=== PATIENT | female | born 1950 | race African-American/Black ===

== ENCOUNTER 2016-12-26 18:27 | Emergency (ER) | payer MEDICARE, OTHER ==
[2016-12-26 16:07] LABS: BASOPHILS 0.3 %; BASOPHILS ABSOLUTE 0.02 10/3/uL (0.0-0.16); EOSINOPHILS 4.5 %; EOSINOPHILS ABSOLUTE 0.35 10/3/uL (0.0-0.53); HEMOGLOBIN 10.8 g/dL (12.0-16.0); IMMATURE GRANULOCYTES 0.3 %; IMMATURE GRANULOCYTES ABSOLUTE 0.02 10/3/uL (0.0-0.11); LYMPHOCYTES 29.1 %; LYMPHOCYTES ABSOLUTE 2.26 10/3/uL (0.67-4.30); MEAN CORPUS HGB CONC 32.9 g/dL (32.0-36.0); MEAN CORPUSCULAR HEMOGLOB 28.9 pg (26.0-34.0); MEAN CORPUSCULAR VOLUME 87.7 fL (80-100); MEAN PLATELET VOLUME 11.6 fL (9.2-13.0); MONOCYTES 7.3 %; MONOCYTES ABSOLUTE 0.57 10/3/uL (0.21-1.20); NEUTROPHILS 58.5 %; NEUTROPHILS ABSOLUTE 4.54 10/3/uL (2.02-8.40); PLATELET COUNT 130 10/3/uL (150-400); RBC DISTRIBUTION WIDTH 14.6 % (12.0-16.0); RED CELL COUNT 3.74 10/6/uL (4.0-5.6); WHITE BLOOD CELLS 7.8 10/3/uL (4.5-10.5)
[2016-12-26 16:13] LABS: HEMATOCRIT 32.8 % (36.0-48.0); MANUAL DIFF NO %
[2016-12-26 16:23] LABS: ALBUMIN 3.2 G/DL (3.5-5.0); CHLORIDE, SERUM 108 MMOL/L (96-112); CO2 (CARBON DIOXIDE) 28 MMOL/L (24-34); GLUCOSE, SERUM 171 MG/DL (60-99); POTASSIUM, SERUM 4.3 MMOL/L (3.5-5.3); SGOT(AST) 12 U/L (5-40); SGPT(ALT) 11 U/L (5-65); SODIUM, SERUM 144 MMOL/L (135-148); TOTAL BILIRUBIN 0.5 MG/DL (0-1.2); TOTAL PROTEIN 7.6 G/DL (6.0-8.5)
[2016-12-26 16:26] LABS: A/G RATIO 0.7 (0.7-1.9); ALKALINE PHOSPHATASE 124 U/L (45-117); BUN (BLOOD UREA NITROGEN) 28 MG/DL (6-23); CALCIUM, SERUM 9.4 MG/DL (8.5-10.4); CREATININE 3.55 MG/DL (0.55-1.02); GFR AFRICAN AMERICAN 15 ML/MIN (>=60); GFR NON AFRICAN AMERICAN 13 ML/MIN (>=60); GLOBULIN 4.4 G/DL (2.5-4.1)
[2016-12-26 16:38] LABS: ASCORBIC ACID (UR NOT ORDER) NEG (NEG); BILIRUBIN, URINE NEGATIVE (NEG); ER URINALYSIS TAT 0 Hrs 14 Mins; KETONE, URINE NEGATIVE (NEG); LEUKOCYTE ESTERASE(NOT OR MOD (NEG); NITRITE (URINE) NEG (NEG); WBC (NOT ORDERED) (RFLEX) 88 (0-5)
[~2016-12-26 18:27] MED LIST: ASAB PO; COREG25 PO; DRISDOL50000 UNT PO; IRON325 MG PO; L80 PO; LANTUS SC; LIPITOR; LIPITOR20 PO; MAGOX4 PO; MICARDIS40 PO; MICARDIS80 PO; NEXIUM; NEXIUM40 PO; NOVOLOG SC; NXL9 PO; O2; SPIRO25 PO; VIT D; VITAMIN B-121000 MC1 SL; VITAMIN D31000 UNIT PO; ZAROX2.5B PO
[2017-03-12] MEDS ORDERED: VENTOLIN HFA INH (22:13)
[2017-03-12] MEDS ORDERED: LIPITOR20 PO (22:14)
[2017-03-12] MEDS ORDERED: ZAROX2.5B PO (22:14)
[2017-03-12] MEDS ORDERED: BUM2 PO (22:14)
[2017-03-12] MEDS ORDERED: COREG25 PO ×2 (22:15→22:16)
[2017-03-12] MEDS ORDERED: ADALAT CC30 MG PO (22:16)
[2017-03-12] MEDS ORDERED: SENSIPAR30 MG PO (22:17)
[2017-03-12] MEDS ORDERED: TOUJEO SC (22:17)
[2017-03-12] MEDS ORDERED: SPIRO25 PO (22:17)
[2017-03-12] MEDS ORDERED: MICARDIS80 PO (22:17)
[2017-03-12] MEDS ORDERED: NOVOPEN SC (22:18)
[2017-03-12] MEDS ORDERED: TEKTURNA300 MG PO (22:18)
[2017-03-12] MEDS ORDERED: ASAB PO (22:20)
[2017-03-12] MEDS ORDERED: CYANO1000T PO (22:20)
[2017-03-14] MEDS ORDERED: ELIQUIS 5 MG TAB5 MG PO (13:55)
[2017-03-14] MEDS ORDERED: LOP50 PO (13:58)
[2017-03-14] MEDS ORDERED: NXL3 PO (14:11)
[2017-03-24] MEDS ORDERED: ELIQUIS 2.5 MG2.5 MG PO (11:55)
[2017-03-25] MEDS ORDERED: LOP25 PO (09:11)
== END 2016-12-26 19:00 | disposition home or self-care (01) ==
LOC: ER 18:27
PROVIDERS: Emergency Medicine
DX: N39.0 Urinary tract infection, site not specified (principal); I10 Essential (primary) hypertension; E11.9 Type 2 diabetes mellitus without complications; Z99.2 Dependence on renal dialysis; Z88.8 Allergy status to other drugs, medicaments and biological substances; Z79.4 Long term (current) use of insulin; Z79.82 Long term (current) use of aspirin; Z79.899 Other long term (current) drug therapy
CPT/HCPCS: 80053; 81001; 83690; 85025; 87077; 87086; 87186; 93005; 96372; 99284